=== PATIENT | female | born 1955 | race African-American/Black ===

== ENCOUNTER 2016-08-24 10:13 | Emergency (ER) | payer MEDICAID ==
[~2016-08-24] VITALS: Ht 160 cm; Wt 77.2 kg
[2016-08-24 10:15] VITALS: BP 126/78
== END 2016-08-24 10:57 | disposition home or self-care (01) ==
LOC: ED 10:51
DX: K08.89 Other specified disorders of teeth and supporting structures (principal); I10 Essential (primary) hypertension
CPT/HCPCS: 99283

== ENCOUNTER 2016-09-15 08:33 | Emergency (ER) | payer MEDICAID ==
[~2016-09-15] VITALS: Ht 157.5 cm; Wt 79.5 kg
[2016-09-15 08:35] VITALS: BP 136/85
[2016-09-15] MEDS ORDERED: CLON0.1T PO (08:58)
[2016-09-15] MEDS ORDERED: BUSP5TAB2 PO (08:58)
[2016-09-15] MEDS ORDERED: LISI1TAB3 PO (08:58)
== END 2016-09-15 09:28 | disposition home or self-care (01) ==
LOC: ED 08:53
DX: K08.89 Other specified disorders of teeth and supporting structures (principal); F41.1 Generalized anxiety disorder; I10 Essential (primary) hypertension
CPT/HCPCS: 99283

== ENCOUNTER 2018-09-03 08:30 | Emergency (ER) | payer MEDICARE, MEDICAID ==
[~2018-09-03] VITALS: Ht 160 cm; Wt 88.0 kg
[~2018-09-03 08:30] MED LIST: BUSP5TAB2 PO; CLON0.1T22 PO; LISI1TAB3 PO
[2018-09-03 08:34] VITALS: BP 124/87
--- NOTE | 2018-09-03 08:49 | NUR ---
PT STATES SHE WAS LIFTING A BOX THREE DAYS AGO AND SHE FELT A " LITTLE BUBBLE LIKE A BALL" SHE STATES SHE FEELS LIKE SHE HAS A TAMPON "IN THERE". SHE STATES SYMPTOMS BEGAN THREE DAYS AGO, SHE STATES SHE HAS MILD DISCOMFORT IN PEINEAL AREA. PT WITH FRIEND AT BEDSIDE. NAD NOTED
--- NOTE | 2018-09-03 09:33 | NUR ---
EDPROVIDER IN FOR PELVIC EXAM. RN TO ASSIT
[2018-09-03 10:42] LABS: MICROSCOPIC NOT IND
[2018-09-03 10:46] LABS: CULTURE INDICATED? NO
--- NOTE | 2018-09-03 10:50 | NUR ---
LATE ENTRY [id number]: UA COLLECTED AND SENT
== END 2018-09-03 11:09 | disposition home or self-care (01) ==
LOC: ED 10:54
DX: N81.4 Uterovaginal prolapse, unspecified (principal)
CPT/HCPCS: 81003; 99283

== ENCOUNTER 2019-02-14 12:16 | Day surgery (SDC) | payer MEDICARE, MEDICAID ==
[2019-02-11 14:02] LABS: ALANINE AMINOTRANSFERASE 26 U/L (12-78); ALBUMIN 3.9 g/dL (3.4-5.0); ANION GAP 5 mmol/L (5-15); CALCIUM 11.1 mg/dL (8.5-10.1); CHLORIDE 107 mmol/L (98-107); CREATININE 0.86 mg/dL (0.55-1.02)
[2019-02-11 14:05] LABS: ALKALINE PHOSPHATASE 112 U/L (45-117); BILIRUBIN,TOTAL 0.2 mg/dL (0.2-1.0); TOTAL PROTEIN 7.9 g/dL (6.4-8.2)
[~2019-02-14] VITALS: Ht 160 cm; Wt 86.2 kg
[~2019-02-14 12:16] MED LIST changes: +AMLO5TAB4 PO; +BUSP30TA PO; +HYDR25TA6 PO; +LISI1TAB23 PO; -LISI1TAB3 PO; +LOSA25TA25 PO
[2019-02-14] MEDS ORDERED: LACTATED RINGERS 1,000 ML IV SCH ×2 (12:51→22:30)
[2019-02-14] MEDS ORDERED: INDIGO CARMINE 0.8%, 5ML ONE (15:08)
[2019-02-14] MEDS ORDERED: BUPIVACAINE/PF 0.25% ONE ×2 (15:08→18:27)
[2019-02-14] MEDS ORDERED: EPINEPHRINE 1 MG/ML, 1ML ONE ×2 (15:08→18:27)
[2019-02-14] MEDS ORDERED: FENTANYL PF 250 MCG/5ML ONE ×2 (15:39→18:04)
[2019-02-14] MEDS ORDERED: MIDAZOLAM 1 MG/ML, 2ML ONE (15:39)
[2019-02-14] MEDS ORDERED: ONDANSETRON 2MG/ML, 2ML ONE ×3 (16:05→19:45)
[2019-02-14] MEDS ORDERED: ROCURONIUM 10 MG/ML,10ML ONE (16:22)
[2019-02-14] MEDS ORDERED: KETOROLAC 30 MG/1 ML ONE (16:22)
[2019-02-14] MEDS ORDERED: PHENYLEPHRINE 10 MG/ML ONE (16:22)
[2019-02-14] MEDS ORDERED: HALOPERIDOL 5 MG/ML IV PRN (16:30)
[2019-02-14] MEDS ORDERED: ACETAMINOPHEN 325 MG TABLET PO PRN (16:30)
[2019-02-14] MEDS ORDERED: hydrALAzine 20 MG/ML, 1ML IV PRN (16:30)
[2019-02-14] MEDS ORDERED: LABETALOL 5MG/ML, 20ML IV PRN (16:30)
[2019-02-14] MEDS ORDERED: ONDANSETRON 2MG/ML, 2ML IVPush ONE (16:30)
[2019-02-14] MEDS ORDERED: FENTANYL PF 100 MCG/2ML IV PRN (16:30)
[2019-02-14] MEDS ORDERED: MEPERIDINE/PF 25MG/ML,1ML IVPush PRN (16:30)
[2019-02-14] MEDS ORDERED: OXYcodone 5 MG/5 ML ORAL.SOL UDC PO PRN (16:30)
[2019-02-14] MEDS ORDERED: PROMETHAZINE 25 MG/ML, 1ML IV PRN (16:30)
[2019-02-14] MEDS ORDERED: HYDROmorphone 2 MG/ML, 1ML IVPush PRN (16:30)
[2019-02-14] MEDS ORDERED: GLYCOPYRROLATE 0.2MG/1ML, 5ML ONE (17:41)
[2019-02-14] MEDS ORDERED: NEOSTIGMINE 1 MG/ML, 10ML ONE (17:41)
[2019-02-14] MEDS ORDERED: DEXAMETHASONE 4 MG/ML, 1ML ONE (17:41)
[2019-02-14] MEDS ORDERED: CEFAZOLIN 1,000 MG ONE (17:41)
[2019-02-14] MEDS ORDERED: PROPOFOL 10 MG/ML, 20ML ONE (17:41)
[2019-02-14] MEDS ORDERED: ESTROGENS CONJUGATED VAG CRM 0.625MG/1G, 30GM ONE (19:07)
[2019-02-14] MEDS ORDERED: FENTANYL PF 100 MCG/2ML ONE (19:37)
[2019-02-14] MEDS ORDERED: HYDROmorphone 1 MG/ML, 1ML INJ ONE (19:37)
[2019-02-14] MEDS ORDERED: OXYcodone 5 MG/5 ML ORAL.SOL UDC ONE (19:38)
[2019-02-14] MEDS ORDERED: PROMETHAZINE 25 MG/ML, 1ML ONE (19:47)
[2019-02-14 21:00] VITALS: BP 103/71
[2019-02-14] MEDS ORDERED: OXYcodone/APAP 5/325MG TABLET PO PRN (22:00)
[2019-02-14] MEDS ORDERED: IBUPROFEN 600 MG TABLET PO PRN (22:00)
[2019-02-14] MEDS ORDERED: ONDANSETRON 2MG/ML, 2ML IV PRN (22:00)
[2019-02-14] MEDS ORDERED: HYDROmorphone 1 MG/ML, 1ML INJ IV PRN ×3 (22:00)
== END 2019-02-14 22:50 | disposition home or self-care (01) ==
LOC: OUT 12:16 → 4NE 20:40 → OUT 22:50
PROVIDERS: ATTEND Obstetrics & Gynecology
DX: N81.2 Incomplete uterovaginal prolapse (principal); N84.0 Polyp of corpus uteri; D25.1 Intramural leiomyoma of uterus; N72 Inflammatory disease of cervix uteri; N83.292 Other ovarian cyst, left side; I10 Essential (primary) hypertension; F43.10 Post-traumatic stress disorder, unspecified; M19.90 Unspecified osteoarthritis, unspecified site; Z79.899 Other long term (current) drug therapy; Z88.0 Allergy status to penicillin; Z88.5 Allergy status to narcotic agent; Z91.018 Allergy to other foods; Z98.890 Other specified postprocedural states; Z83.3 Family history of diabetes mellitus
CPT/HCPCS: 36415; 57260; 58552; 80053; 88307; 93005; J0171; J0690; J1100; J1170; J1885; J2250; J2370; J2405; J2550; J2704; J2710; J3010; J3490; J7120; G0378